=== PATIENT | female | born 1995 | race Caucasian/White ===

== ENCOUNTER 2020-12-30 09:15 | Emergency (ER) | payer OTHER, SELFPAY ==
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
[2020-12-30 09:48] VITALS: BP 139/85; PULSE 102; RESP 18; TEMP 36.8; O2SAT 99; BMI 22.6
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
== END 2020-12-30 12:29 | disposition home or self-care (01) ==
PROVIDERS: Emergency Provider Internal Medicine
DX: S16.1XXA Strain of muscle, fascia and tendon at neck level, initial encounter (principal); M54.2 Cervicalgia; V43.52XA Car driver injured in collision with other type car in traffic accident, initial encounter; Y93.9 Activity, unspecified; Y92.410 Unspecified street and highway as the place of occurrence of the external cause; Z79.899 Other long term (current) drug therapy
CPT/HCPCS: 72125; 99284